=== PATIENT | female | born 1945 | race Caucasian/White ===

== ENCOUNTER 2016-07-13 19:17 | Emergency (ER) | payer MEDICARE ==
[2016-07-13 20:25] LABS: #Eosinphils 0.1 thou/uL (0.0-0.7); #Lymphocytes 1.1 thou/uL (1.20-3.40); #Monocytes 0.5 thou/uL (0.11-0.59); #Neutrophils 6.3 thou/uL (1.40-6.50); %Basophils 0.6 % (0.0-1.0); %Eosinophils 1.2 % (0.0-10.0); %Lymphocytes 13.3 % (21.0-51.0); %Monocytes 6.6 % (0.0-10.0); Hematocrit 34.1 % (36.0-47.0); Mean Platelet Volume 5.4 fL (7.4-10.4); Red Blood Cell (RBC) Count 3.78 mill/uL (4.20-5.40); White Blood Cell (WBC) Count 8.1 thou/uL (4.8-10.8)
[2016-07-13 20:31] LABS: Prothrombin Time 13.9 SEC (12.0-14.7)
[2016-07-13 20:38] LABS: ALT (SGPT) 22 U/L (0-55); AST (SGOT) 23 U/L (5-34); Alkaline Phosphatase 71 U/L (40-150); Anion Gap 26 mmol/L (10-20); BUN (Urea Nitrogen) 69 mg/dL (9.8-20.1); Bilirubin, Total 0.6 mg/dL (0.2-1.2); Calc. Creatinine Clearance 0 mL/min (70-130); Calcium 10.2 mg/dL (7.8-10.44); Carbon Dioxide 21 mmol/L (23-31); Chloride 101 mmol/L (98-107); Estimated GFR-MDRD 4; Globulin 3.1 g/dL (2.4-3.5); Protein, Total 7.3 g/dL (5.8-8.1)
[2016-07-13] MEDS ORDERED: Dextrose 50% Abboject 50 ML SYRINGE ONE (21:18)
[2016-07-13] MEDS ORDERED: Insulin Regular 300 UNITS/3 ML VIAL ONE (21:20)
--- NOTE | 2016-07-13 21:50 | RAD ---
SEMI UPRIGHT FRONTAL CHEST RADIOGRAPH: Date: 07-13-16 Comparison: None. History: Left shoulder pain, fall. FINDINGS: Cardiac silhouette is prominent. No pneumothorax or pleural fluid. No focal consolidation or alveo lar edema. Left shoulder is not well assessed on this exam. IMPRESSION: No acute findings. If left shoulder symptoms persist, dedicated left shoulder imaging advised. POS: [facility]
--- NOTE | 2016-07-13 21:58 | CT ---
CT ABDOMEN AND PELVIS: Date: 07-13-16 Comparison: None. Technique: Serial axial CT imaging at 5 mm intervals from lung bases through pubic symphysis withou t contrast. Coronal reformatted imaging obtained. FINDINGS: The lack of contrast medial limits assessment of the viscera, bowel vascular structures and for lymp hadenopathy. Imaged lung bases are unremarkable. Gallbladder is surgically absent. No free intraperitoneal air or fluid. There is a ventral midline abdominal hernia. There is a large hernia sac containing numerous non-di lated loops of small bowel. This hernia sac measures at least 18 x 11 cm in greatest AP/transverse dimension and measures 15.3 cm in craniocaudal dimension. Liver, spleen, pancreas, and adrenal glands are grossly unremarkable. No evidence for obstructive u ropathy seen on either side. Punctate calcific density seen in lower pole left kidney, likely on th e basis of a vascular calcification. There is prominent sigmoid diverticulosis with no evidence for diverticulitis. No evidence for oriana l obstruction is seen. There is multifocal atherosclerotic calcification of the abdominal aorta and its branches, not well characterized on noncontrast enhanced imaging. There is partial fatty atrophy of the buttock musculature on the right. There is significant lower lumbar spine degenerative change. There is a minimally displaced inferior pubic ramus fracture on the left, best seen on axial image 9 0. No widening of the sacroiliac joints noted. No sacral fracture is seen. There is no widening o f the pubic symphysis. IMPRESSION: 1. Minimally displaced inferior pubic ramus fracture on the left. 2. Large ventral hernia sac containing nonobstructed small bowel. 3. Diverticulosis without evidence for diverticulitis. POS: [facility]
--- NOTE | 2016-07-13 22:10 | RAD ---
FOUR VIEWS OF THE LEFT SHOULDER: Date: 07-13-16 Comparison: None. History: Pain, fall. FINDINGS: Osseous detail is limited on the basis of patient body habitus and technique. No widening of the AC or CC interspace. No displaced fracture or dislocation. If symptoms persist, follow up imaging is advised given limitations of this exam. IMPRESSION: No displaced fracture or dislocation. Technically limited examination as above. POS: [facility]
== END 2016-07-13 22:35 | disposition short-term general hospital (02) ==
LOC: NAV ERS 19:17
DX: S32.592A Other specified fracture of left pubis, initial encounter for closed fracture (principal); E11.9 Type 2 diabetes mellitus without complications; E78.5 Hyperlipidemia, unspecified; E78.00 Pure hypercholesterolemia, unspecified; I10 Essential (primary) hypertension; Z79.84 Long term (current) use of oral hypoglycemic drugs; Z79.899 Other long term (current) drug therapy; X58.XXXA Exposure to other specified factors, initial encounter
CPT/HCPCS: 71010; 74176; 80053; 85025; 85610; 93005; 96374; 96375; J1815